=== PATIENT | male | born 1990 | race American Indian/Alaskan Native ===

== ENCOUNTER 2021-11-16 01:54 | Emergency (ER) | payer OTHER, SELFPAY ==
--- NOTE | ~2021-11-16 | CT_ITS ---
EXAMINATION: CT abdomen pelvis w con EXAM DATE: 11/16/2021 06:25 INDICATION: Left lower quadrant pain and intractable hiccups . TECHNIQUE: Spiral CT of the abdomen and pelvis was performed no prior Axial, coronal and sagittal im ages of the abdomen and pelvis were reviewed. The dose-length product (DLP) for this examination was 265.44 mGy-cm. The exposure was tailored according to patient size (auto mA exposure control), and iterative reconstruction (ASIR) was used as additional dose reduction technique. There is no prior s tudy for comparison. FINDINGS: The liver, spleen, adrenal glands and pancreas are unremarkable. Gallbladder is unremarkab le. No biliary obstruction. Portal and splenic veins are patent. Kidneys enhance symmetrically. T here is no hydronephrosis. The prostate is unremarkable. The bladder is unremarkable. There is no retroperitoneal or pelvic lymphadenopathy. The appendix is normal. Probable mild distal esophageal edema could indicate esophagitis. The stomach and small bowel are unremarkable. There is expected amount of colonic stool. No free intraperiton eal gas. The heart is normal in size. There are no pericardial or pleural effusions. The lung bas es are unremarkable. There are no osteoblastic or osteolytic lesions identified. IMPRESSION: 1. Distal esophageal edema could indicate esophagitis. 2. No acute intra-abdominal findings. Reviewed, dictated and finalized at location A. STRIAL SALES MANAGER
[2021-11-16 01:58] VITALS: BP 144/100; PULSE 121; RESP 20; TEMP 37; O2SAT 97
[2021-11-16 05:14] VITALS: BP 122/84; PULSE 105; RESP 20; TEMP 36.6; O2SAT 97
[2021-11-16] MEDS: SODIUM CHLORIDE 0.9% IV 1,000 ML 999 ML IV CONT (05:51)
[2021-11-16 06:00] LABS: Basophils Absolute Auto 0.1 K/mm3 (0.0-0.1); Basophils Percent Auto 0.6 % (0.2-1.2); Eosinophils Percent Auto 0.3 % (0-4.4); Hematocrit 51.9 % (42.0-52.0); Immature Granulocyte Absolute 0.03 K/mm3 (0.00-0.031); Immature Granulocyte Percent A 0.3 % (0-0.5); Lymphocytes Absolute Auto 1.88 K/mm3 (0.9-3.2); Lymphocytes Percent Auto 16.4 % (18.3-44.2); Mean Corpuscular HGB Conc 34.7 g/dl (32-36); Mean Corpuscular Hemoglobin 30.4 pg (26-34); Mean Corpuscular Volume 87.7 fl (80-100); Mean Platelet Volume 9.5 fl (7.4-10.4); Monocytes Absolute Auto 0.7 K/mm3 (0.1-0.6); Monocytes Percent Auto 5.9 % (2.6-8.5); Neutrophils Absolute Auto 8.8 K/mm3 (1.3-6.7); Neutrophils Percent Auto 76.5 % (45.5-73.1); Platelet Count Result 263 k/mm3 (150-375); Red Blood Count 5.92 M/mm3 (4.6-6.20); Red Cell Distribution Width 13.2 % (11.5-14.5); White Blood Count 11.5 K/mm3 (4.5-10.0)
[2021-11-16 06:07] LABS: Lactic Acid Reflex 2.3 mmol/L (0.7-2.1)
[2021-11-16 06:08] LABS: Alanine Aminotransferase 47 U/L (4-50); Albumin Level 4.9 g/dL (3.5-5.1); Alkaline Phosphatase 87 U/L (38-126); Anion Gap 16 mmol/L (8-16); Aspartate Amino Transferase 39 U/L (17-59); Bilirubin,Total 0.8 mg/dL (0.2-1.3); Blood Urea Nitrogen 8 mg/dL (9-20); Calcium 9.6 mg/dL (8.4-10.2); Carbon Dioxide 23 mmol/L (22-30); Chloride 101 mmol/L (98-107); Estimated CRCL calculation 122 ml/min; Estimated Glomerular Filt Rate > 60; Glucose 104 mg/dL (65-110); Lipase 82 U/L (23-300); Potassium 3.3 mmol/L (3.4-5.0); Sodium 140 mmol/L (137-145)
--- NOTE | 2021-11-16 06:13 | ED.GENADULT ---
HPI - General Adult General Chief complaint: Nausea/Vomiting/Diarrhea Stated complaint: hiccups, n/v, abd pain Time Seen by Provider: 11/16/21 05:20 History of Present Illness HPI narrative: 31-year-old male presenting to the emergency department for evaluation of left lower quadrant pain and intractable hiccups. Patient states he has developed left lower quadrant pain with associated nausea vomiting over the last few days. Patient states over the last 24 hours he has had intractable hiccups. Patient denies any previous abdominal surgeries. Denies any new medications. Patient states in [place] he did take Soma but states he is not taking that medication here. During the exam patient was has intermittent hiccups. 1 every 20-40 seconds. Related Data Allergies Allergy/AdvReac Type Severity Reaction Status Date / Time No Known Allergies Allergy Verified 11/16/21 05:16 Review of Systems Review of Systems: CONSTITUTIONAL: Denies fever, chills, or sweats. EYES: Denies visual changes, redness, or discharge. ENT: Denies rhinorrhea, congestion, sore throat, or otalgia. CARDIOVASCULAR: Denies chest pain, palpitations, or edema. RESPIRATORY: Intractable hiccups for the last 24 hours GASTROINTESTINAL: Left lower quadrant pain with associated nausea vomiting GENITOURINARY: Denies dysuria or hematuria. SKIN: Denies rash or itching. MUSCULOSKELETAL: Denies back pain, joint pain, or myalgia. NEUROLOGIC: Denies headache, numbness, or weakness. PSYCHIATRIC: Denies anxiety or depression. Exam Narrative: APPEARANCE: Well appearing, no pain in distress, well-nourished. HEAD: normocephalic, atraumatic. EYES: PERRLA/EOMI, conjunctivae clear. NECK: Supple. No adenopathy, no masses. RESPIRATORY: Airway patent, respirations nonlabored. Clear to auscultation bilaterally, no rales, rhonchi, wheezing. CARDIOVASCULAR: Regular rate and rhythm without murmurs rubs or gallops. ABDOMINAL: Normal bowel sounds, left lower quadrant tenderness to palpation MUSCULOSKELETAL: Moves all extremities. Strength/ROM intact, No edema, No calf tenderness. NEURO: Alert. Cranial nerves II through XII intact. Good gait. Good coordination SKIN: Warm, dry. Normal Color PSYCHIATRIC: Normal affect/mood. Course Course Emergency Course: CT scan was ordered to determine the etiology of LLQ pain and to exal for abdominal or lower lung finding that could be the cause of his hiccups. On re exam patient was resting comfortably and had no hiccups for the 5 min i spent updating him on the results and plan for follow up. patient was was appearing and in no distress at time of disposition home. Vital Signs Vital signs: Vital Signs Temperature 98.6 F 11/16/21 01:58 Pulse Rate 121 H 11/16/21 01:58 Respiratory Rate 20 11/16/21 01:58 Blood Pressure 144/100 H 11/16/21 01:58 Pulse Oximetry 97 11/16/21 01:58 Temperature 97.9 F 11/16/21 05:14 Pulse Rate 105 H 11/16/21 05:14 Respiratory Rate 20 11/16/21 05:14 Blood Pressure 122/84 11/16/21 05:14 Pulse Oximetry 97 11/16/21 05:14 Medical Decision Making Vital Signs Vital Signs: Vital Signs Temperature 98.6 F 11/16/21 01:58 Pulse Rate 121 H 11/16/21 01:58 Respiratory Rate 20 11/16/21 01:58 Blood Pressure 144/100 H 11/16/21 01:58 Pulse Oximetry 97 11/16/21 01:58 Temperature 97.9 F 11/16/21 05:14 Pulse Rate 105 H 11/16/21 05:14 Respiratory Rate 20 11/16/21 05:14 Blood Pressure 122/84 11/16/21 05:14 Pulse Oximetry 97 11/16/21 05:14 Lab Data Lab results reviewed: Yes I reviewed the patient's lab results. Result diagrams: 11/16/21 05:43 11/16/21 05:43 Labs: Lab Results 11/16/21 11/16/21 11/16/21 Range/Units 05:43 05:43 05:43 WBC 11.5 H (4.5-10.0) K/mm3 RBC 5.92 (4.6-6.20) M/mm3 Hgb 18.0 (14.0-18.0) g/dL Hct 51.9 (42.0-52.0) % MCV 87.7 (80-100) fl MCH 30.4 (26-34) pg MCHC 34.7 (32-36) g/dl RDW 1
--- NOTE | 2021-11-16 06:15 | PC.NURSE ---
Patient taken to CT.
--- NOTE | 2021-11-16 07:11 | PC.NURSE ---
Report given to STEVE Garcia.
[2021-11-16 08:55] LABS: Reflex Lactic Acid Yes or No Add Lactic
== END 2021-11-16 08:00 | disposition home or self-care (01) ==
PROVIDERS: Emergency Provider Emergency Medicine
DX: R10.32 Left lower quadrant pain (principal); R06.6 Hiccough
CPT/HCPCS: 36415; 74177; 80053; 83605; 83690; 85025; 96360; 99284; J7030; Q9967

== ENCOUNTER 2021-11-29 00:23 | Emergency (ER) | payer SELFPAY ==
[2021-11-29] VITALS (18 sets, daily range): BP systolic 112–144; BP diastolic 56–101; PULSE 98–135; RESP 14–25; TEMP 37.3; O2SAT 97
--- NOTE | ~2021-11-29 | CT_ITS ---
EXAMINATION: CT abdomen pelvis w con DATE: 11/29/2021 01:41 INDICATION: Abdominal pain and vomiting TECHNIQUE: Computed tomography (CT) of the abdomen and pelvis was performed with 100 cc Omnipaque 350 intravenous contrast. The dose-length product was 243.48 mGy-cm. Automated exposure control and iter ative reconstruction technique were employed. COMPARISON: CT dated 11/16/2021. FINDINGS: Lung bases are unremarkable. Heart size normal. There is diffuse thickening of the distal e sophagus. No significant pleural or pericardial effusion. No significant vascular abnormality. No lym phadenopathy. Nonobstructive bowel gas pattern. No free air or free fluid. Normal appendix. Fatty inf iltration of the liver. The spleen, pancreas, adrenal glands and kidneys are unremarkable. Small hiat al hernia. IMPRESSION: 1. Small hiatal hernia with thickening of the distal esophagus, suspicious for esophagitis. Reviewed, dictated and finalized at location A. MESSENGER
[2021-11-29] MEDS: diphenhydrAMINE HCl INJ 50 MG/ML VIAL IV PUSH (01:18)
[2021-11-29] MEDS: PROCHLORPERAZINE EDISYLATE 10 MG/2 ML VIAL IV PUSH (01:18)
[2021-11-29 01:20] LABS: Alanine Aminotransferase 77 U/L (4-50); Albumin Level 5.3 g/dL (3.5-5.1); Alkaline Phosphatase 102 U/L (38-126); Anion Gap 19 mmol/L (8-16); Aspartate Amino Transferase 51 U/L (17-59); Bilirubin,Total 1.5 mg/dL (0.2-1.3); Blood Urea Nitrogen 9 mg/dL (9-20); Calcium 9.2 mg/dL (8.4-10.2); Carbon Dioxide 25 mmol/L (22-30); Chloride 94 mmol/L (98-107); Estimated CRCL calculation 114 ml/min; Estimated Glomerular Filt Rate > 60; Glucose 173 mg/dL (65-110); Lipase 91 U/L (23-300); Potassium 3.5 mmol/L (3.4-5.0); Sodium 138 mmol/L (137-145)
[2021-11-29] MEDS: SODIUM CHLORIDE 0.9% IV 100 ML 500 ML (01:21)
[2021-11-29 01:26] LABS: Basophils Absolute Auto 0.1 K/mm3 (0.0-0.1); Basophils Percent Auto 0.8 % (0.2-1.2); Eosinophils Percent Auto 0.2 % (0-4.4); Hematocrit 49.6 % (42.0-52.0); Hemoglobin 17.4 g/dL (14.0-18.0); Immature Granulocyte Absolute 0.03 K/mm3 (0.00-0.031); Immature Granulocyte Percent A 0.3 % (0-0.5); Lymphocytes Absolute Auto 1.16 K/mm3 (0.9-3.2); Lymphocytes Percent Auto 12.3 % (18.3-44.2); Mean Corpuscular HGB Conc 35.1 g/dl (32-36); Mean Corpuscular Hemoglobin 30.4 pg (26-34); Mean Corpuscular Volume 86.7 fl (80-100); Mean Platelet Volume 9.4 fl (7.4-10.4); Monocytes Absolute Auto 0.7 K/mm3 (0.1-0.6); Monocytes Percent Auto 6.9 % (2.6-8.5); Neutrophils Absolute Auto 7.5 K/mm3 (1.3-6.7); Neutrophils Percent Auto 79.5 % (45.5-73.1); Platelet Count Result 325 k/mm3 (150-375); Red Blood Count 5.72 M/mm3 (4.6-6.20); Red Cell Distribution Width 13.3 % (11.5-14.5); White Blood Count 9.4 K/mm3 (4.5-10.0)
--- NOTE | 2021-11-29 01:56 | ED.GENADULT ---
HPI - General Adult General Chief complaint: Abdominal Pain Stated complaint: vomiting Time Seen by Provider: 11/29/21 00:51 History of Present Illness HPI narrative: Patient 4-year-old gentleman who presents the emergency department with chief complaint of epigastric discomfort. Patient reports that he started having hiccups and has had pain in the epigastrium. Patient reports nausea with this reports uncomfortable feeling. Patient states symptoms or not improved by anything patient also reports that he started vomiting this evening and had some blood in it as well. Patient states it was bright red blood not coffee-ground material patient reports no prior history of GI bleeds. Related Data Allergies Allergy/AdvReac Type Severity Reaction Status Date / Time No Known Allergies Allergy Verified 11/16/21 05:16 Review of Systems Review of Systems: A 10 system review of systems was completed on the patient and is negative except for what is stated in the HPI. Nursing and ancillary documentation was reviewed. Exam Narrative: GENERAL: Well-appearing, well-nourished, and in no acute distress. HEAD: Normocephalic, atraumatic. EYES: PERRLA and EOMI. ENT: Nares clear, no rhinorrhea or epistaxis. Mucous membranes moist. NECK: Supple. CHEST: Clear to auscultation. No respiratory distress. HEART: Regular rate and rhythm. No murmur heard. Normal peripheral pulses. ABDOMEN: Soft, nontender, nondistended, normal active bowel sounds. EXTREMITIES: Normal range of motion. No edema. SKIN: Warm, dry, no rash. NEURO: No focal deficits. Alert and oriented x3. PSYCH: Normal mood and affect. Course Vital Signs Vital signs: Vital Signs Temperature 37.3 C 11/29/21 00:25 Pulse Rate 135 H 11/29/21 00:25 Respiratory Rate 16 11/29/21 00:25 Blood Pressure 143/92 H 11/29/21 00:25 Pulse Oximetry 97 11/29/21 00:25 Temperature 37.3 C 11/29/21 00:25 Pulse Rate 115 H 11/29/21 03:01 Respiratory Rate 17 11/29/21 03:01 Blood Pressure 123/101 H 11/29/21 03:01 Pulse Oximetry 97 11/29/21 00:25 Medical Decision Making Vital Signs Vital Signs: Vital Signs Temperature 37.3 C 11/29/21 00:25 Pulse Rate 135 H 11/29/21 00:25 Respiratory Rate 16 11/29/21 00:25 Blood Pressure 143/92 H 11/29/21 00:25 Pulse Oximetry 97 11/29/21 00:25 Temperature 37.3 C 11/29/21 00:25 Pulse Rate 115 H 11/29/21 03:01 Respiratory Rate 17 11/29/21 03:01 Blood Pressure 123/101 H 11/29/21 03:01 Pulse Oximetry 97 11/29/21 00:25 Lab Data Result diagrams: 11/29/21 00:56 11/29/21 00:56 Labs: Lab Results 11/29/21 11/29/21 11/29/21 Range/Units 00:56 00:56 01:16 WBC 9.4 (4.5-10.0) K/mm3 RBC 5.72 (4.6-6.20) M/mm3 Hgb 17.4 (14.0-18.0) g/dL Hct 49.6 (42.0-52.0) % MCV 86.7 (80-100) fl MCH 30.4 (26-34) pg MCHC 35.1 (32-36) g/dl RDW 13.3 (11.5-14.5) % Plt Count 325 (150-375) k/mm3 MPV 9.4 (7.4-10.4) fl Immature Gran % (Auto) 0.3 (0-0.5) % Neut % (Auto) 79.5 H (45.5-73.1) % Lymph % (Auto) 12.3 L (18.3-44.2) % Grand % (Auto) 6.9 (2.6-8.5) % Eos % (Auto) 0.2 (0-4.4) % Baso % (Auto) 0.8 (0.2-1.2) % Lymph # (Auto) 1.16 (0.9-3.2) K/mm3 Grand # (Auto) 0.7 H (0.1-0.6) K/mm3 Eos # (Auto) 0.0 (0-0.3) K/mm3 Baso # (Auto) 0.1 (0.0-0.1) K/mm3 Abs Immat Gran (auto) 0.03 (0.00-0.031) K/mm3 Absolute Neuts (auto) 7.5 H (1.3-6.7) K/mm3 Absolute Nucleated RBC 0.0 (0.0-0.012) K/mm3 Nucleated RBC % 0.0 (0.0-0.2) % PT (11.1-14.7) Seconds INR APTT (22.3-36.8) SECONDS Sodium 138 (137-145) mmol/L Potassium 3.5 (3.4-5.0) mmol/L Chloride 94 L (98-107) mmol/L Carbon Dioxide 25 (22-30) mmol/L Anion Gap 19 H (8-16) mmol/L BUN 9 (9-20) mg/dL Creatinine 0.80 (0.7-1.3) mg/dL Estim Creat Clear Calc 114 ml/min Estimated GFR > 60 (59 -
[2021-11-29 01:57] LABS: Add Urine Microscopic? YES; Appearance Urine Clear (Clear); Bilirubin Urine Negative (Negative); Blood Urine Negative (Negative); Color Urine Straw (Yellow); Glucose Urine UA 3+ mg/dL (Negative); Ketones Urine Trace mg/dL (Negative); Leukocyte Esterase Ur Negative LEU/UL (Negative); Nitrate Urine Negative (Negative); Protein Urine Negative (Negative); RBC Urine 0-2 /hpf (0-2); Specific Grav Ur 1.005 (1.001-1.035); Urobilinogen Urine Negative mg/dL (<2.0); WBC Urine 0-3 /hpf
[2021-11-29 02:10] LABS: INR 0.9; Prothrombin Time 11.8 Seconds (11.1-14.7)
[2021-11-29 02:47] LABS: Lactic Acid Reflex 4.5 mmol/L (0.7-2.1)
[2021-11-29] MEDS: SODIUM CHLORIDE 0.9% IV 1,000 ML 999 ML IV CONT ×2 (03:26→04:32)
[2021-11-29 04:51] LABS: Reflex Lactic Acid Yes or No Add Lactic
[2021-11-29 05:27] LABS: Lactic Acid 2.2 mmol/L (0.7-2.1)
== END 2021-11-29 07:30 | disposition home or self-care (01) ==
PROVIDERS: Emergency Provider Emergency Medicine
DX: K29.00 Acute gastritis without bleeding (principal); R06.6 Hiccough
CPT/HCPCS: 36415; 74177; 80053; 81001; 83605; 83690; 85025; 85610; 85730; 86850; 86900; 86901; 96361; 96374; 96375; 99284; J0780; J1200; J7030; Q9967

== ENCOUNTER 2021-12-15 01:50 | Emergency (ER) | payer SELFPAY ==
[2021-12-15] VITALS (21 sets, daily range): BP systolic 109–148; BP diastolic 70–108; PULSE 73–104; RESP 11–18; O2SAT 95–99
--- NOTE | 2021-12-15 02:12 | ED.NAVMDI ---
HPI - Nausea/Vomiting/Diarrhea General Chief complaint: Nausea/Vomiting/Diarrhea Stated complaint: throwing up blood - etoh and drinking red drinks Time Seen by Provider: 12/15/21 01:54 Source: patient History of Present Illness HPI Narrative: Patient presents with concerns for vomiting blood. Patient ports he was drinking alcohol today and they were red-colored. He also reports a longstanding history of vomiting blood he was said to be evaluated by GI in [place] years ago but has not done so and has no plans to continue his evaluation with GI. Reports overall he feels well he is just throwing up blood. Denies any diarrhea or urinary symptoms denies any trauma denies any lightheadedness dizziness or palpitations. Related Data Allergies Allergy/AdvReac Type Severity Reaction Status Date / Time No Known Allergies Allergy Verified 12/15/21 03:06 Review of Systems Review of Systems: CONSTITUTIONAL: Denies fever, chills, or sweats. EYES: Denies visual changes, redness, or discharge. ENT: Denies rhinorrhea, congestion, sore throat, or otalgia. CARDIOVASCULAR: Denies chest pain, palpitations, or edema. RESPIRATORY: Denies cough or dyspnea. GASTROINTESTINAL: Denies abdominal pain, or diarrhea. GENITOURINARY: Denies dysuria or hematuria. SKIN: Denies rash or itching. MUSCULOSKELETAL: Denies back pain, joint pain, or myalgia. NEUROLOGIC: Denies headache, numbness, dizziness, or weakness. PSYCHIATRIC: Denies anxiety or depression. All systems reviewed & are unremarkable except as noted in HPI and below PMFSH Past Medical History Medical History (Updated 12/15/21 @ 06:30 by Matty Magdaleno MD) Hypertension Social History Social History (Updated 12/15/21 @ 02:14 by Matty Magdaleno MD) Alcohol intake: current Exam Narrative: GENERAL: Well-appearing, well-nourished, and in no acute distress. HEAD: Normocephalic, atraumatic. EYES: PERRLA and EOMI. ENT: Nares clear, no rhinorrhea or epistaxis. Mucous membranes moist. NECK: Supple. No masses. No JVD ABDOMEN: Mild tenderness palpation of the left abdomen no rebound or guarding soft, nondistended, normal active bowel sounds. EXTREMITIES: Normal range of motion. No edema. SKIN: Warm, dry, no rash. NEURO: No focal deficits. Alert and oriented x3. PSYCH: Normal mood and affect. Course Reevaluation(s) Reevaluation #1: Patient reports feeling much improved and feels he can manage his sympotms at home. Date: 12/15/21 Time: 06:26 Vital Signs Vital signs: Vital Signs Pulse Rate 104 H 12/15/21 01:50 Respiratory Rate 18 12/15/21 01:50 Blood Pressure 148/108 H 12/15/21 01:50 Pulse Oximetry 97 12/15/21 01:50 Pulse Rate 88 12/15/21 06:45 Respiratory Rate 18 12/15/21 06:45 Blood Pressure 138/97 H 12/15/21 06:45 Pulse Oximetry 99 12/15/21 06:45 MDM - Nausea/Vomiting/Diarrhea MDM Narrative Medical decision making narrative: Patient presented with concern for bloody emesis. patient has a hx of the same suspected to be gastritis pt also reported having red beverages this evening. Pt overall looks clinically well, VS reassuring, exam with non acute abdoment. labs obtained and clinically unremarkable witht he exception of the EtoH. Suspected alcohol intoxication with alcoholic gastrics, low concern for signifciatn hemorrhage, perforation. With a reassuring exam and negative work up pt is appropriate for coutnined outpatient management, he was encourged to see PCM and GI for continued evaluation of his symtpoms. Taxi was called for the patient. Lab Data Result diagrams: 12/15/21 02:16 12/15/21 02:56 Labs: Lab Results 12/15/21 12/15/21 12/15/21 Range/Units 02:16 02:16 02:56 WBC 6.5 (4.5-10.0) K/mm3 RBC 5.48 (4.6-6.20) M/mm3 Hgb 16.7 (14.0-18.0) g/dL Hct 48.8 (42.0-52.0) % MCV 89.1 (80-100) fl MCH 30.5 (26-34) pg MCHC 34.2 (32-36) g/dl RDW 13.8 (11.5-14.5) % Plt Count 339 (1
[2021-12-15 02:28] LABS: Add Urine Microscopic? NO; Appearance Urine Clear (Clear); Bilirubin Urine Negative (Negative); Blood Urine Negative (Negative); Color Urine Straw (Yellow); Glucose Urine UA Negative (Negative); Ketones Urine Negative (Negative); Leukocyte Esterase Ur Negative LEU/UL (Negative); Nitrate Urine Negative (Negative); Protein Urine Negative (Negative); Urobilinogen Urine Negative mg/dL (<2.0)
[2021-12-15] MEDS: SODIUM CHLORIDE 0.9% IV 1,000 ML 999 ML IV CONT (02:31)
[2021-12-15] MEDS: ONDANSETRON INJ 4 MG/2 ML VIAL IV PUSH (02:31)
[2021-12-15 02:46] LABS: Basophils Absolute Auto 0.1 K/mm3 (0.0-0.1); Basophils Percent Auto 0.9 % (0.2-1.2); Eosinophils Percent Auto 0.3 % (0-4.4); Hematocrit 48.8 % (42.0-52.0); Hemoglobin 16.7 g/dL (14.0-18.0); Immature Granulocyte Absolute 0.02 K/mm3 (0.00-0.031); Immature Granulocyte Percent A 0.3 % (0-0.5); Lymphocytes Absolute Auto 1.69 K/mm3 (0.9-3.2); Lymphocytes Percent Auto 26.2 % (18.3-44.2); Mean Corpuscular HGB Conc 34.2 g/dl (32-36); Mean Corpuscular Hemoglobin 30.5 pg (26-34); Mean Corpuscular Volume 89.1 fl (80-100); Monocytes Absolute Auto 0.5 K/mm3 (0.1-0.6); Neutrophils Absolute Auto 4.2 K/mm3 (1.3-6.7); Neutrophils Percent Auto 65.3 % (45.5-73.1); Platelet Count Result 339 k/mm3 (150-375); Red Blood Count 5.48 M/mm3 (4.6-6.20); Red Cell Distribution Width 13.8 % (11.5-14.5); White Blood Count 6.5 K/mm3 (4.5-10.0)
[2021-12-15 02:51] LABS: Specific Grav Ur 1.003 (1.001-1.035)
[2021-12-15 03:53] LABS: Alanine Aminotransferase 108 U/L (4-50); Albumin Level 4.6 g/dL (3.5-5.1); Alkaline Phosphatase 95 U/L (38-126); Anion Gap 14 mmol/L (8-16); Aspartate Amino Transferase 73 U/L (17-59); Bilirubin,Total 0.6 mg/dL (0.2-1.3); Blood Urea Nitrogen 5 mg/dL (9-20); Calcium 8.6 mg/dL (8.4-10.2); Carbon Dioxide 26 mmol/L (22-30); Chloride 103 mmol/L (98-107); Estimated CRCL calculation 114 ml/min; Estimated Glomerular Filt Rate > 60; Glucose 111 mg/dL (65-110); Lipase 92 U/L (23-300); Sodium 143 mmol/L (137-145)
[2021-12-15 04:04] LABS: Ethanol 371 mg/dL (<10)
== END 2021-12-15 06:38 | disposition home or self-care (01) ==
PROVIDERS: Emergency Provider Emergency Medicine
DX: F10.120 Alcohol abuse with intoxication, uncomplicated (principal); I10 Essential (primary) hypertension; Y90.8 Blood alcohol level of 240 mg/100 ml or more
CPT/HCPCS: 36415; 80053; 80307; 81003; 83690; 85025; 96361; 96374; 99284; J2060; J2405; J7030

== ENCOUNTER 2021-12-16 21:00 | Emergency (ER) | payer OTHER, SELFPAY ==
--- NOTE | ~2021-12-16 | XR_ITS ---
EXAMINATION: XR chest 2V EXAM DATE: 12/16/2021 21:20 INDICATION: Sternal Chest Pressure,Dizzy,Weak,Since 5pm Today. TECHNIQUE: Frontal and lateral projections of the chest obtained and reviewed. There is no prior liana dy for comparison. FINDINGS: The lungs are clear. There are no pleural effusions. The cardiomediastinal silhouette is within normal limits. There is no pneumothorax suspected. The bones and soft tissues are unremarkab le. IMPRESSION: No acute cardiopulmonary findings. Reviewed, dictated and finalized at location G. MA CENTER TECHNICIAN
--- NOTE | 2021-12-16 21:09 | ECG_ITS ---
Measurements Intervals [place] Rate: 112 P: 146 NC: 121 QRS: 143 QRSD: 93 T: -19 QT: 289 QTc: 395 Interpretive Statements SINUS OR ECTOPIC ATRIAL TACHYCARDIA ARM LEADS REVERSED DELAYED PRECORDIAL R/S TRANSITION MINIMAL Q WAVES- INF/LAT LEADS BORDERLINE ST-T WAVE ABNORMALITY- INFERIOR LEADS BASELINE WANDER- I, II ABNORMAL ECG Electronically Signed On 12-17-2021 6:31:30 DIRECT MAIL CLERK by Jose Alberto Landers D.O.
[2021-12-16 21:18] VITALS: BP 160/100; PULSE 120; RESP 18; TEMP 37.7; O2SAT 99
[2021-12-16 21:26] LABS: Basophils Absolute Auto 0.1 K/mm3 (0.0-0.1); Basophils Percent Auto 0.7 % (0.2-1.2); Hematocrit 46.6 % (42.0-52.0); Hemoglobin 15.9 g/dL (14.0-18.0); Immature Granulocyte Absolute 0.02 K/mm3 (0.00-0.031); Immature Granulocyte Percent A 0.2 % (0-0.5); Lymphocytes Absolute Auto 0.75 K/mm3 (0.9-3.2); Lymphocytes Percent Auto 6.4 % (18.3-44.2); Mean Corpuscular HGB Conc 34.1 g/dl (32-36); Mean Corpuscular Hemoglobin 30.6 pg (26-34); Mean Corpuscular Volume 89.8 fl (80-100); Mean Platelet Volume 9.1 fl (7.4-10.4); Monocytes Absolute Auto 0.7 K/mm3 (0.1-0.6); Monocytes Percent Auto 5.8 % (2.6-8.5); Neutrophils Absolute Auto 10.3 K/mm3 (1.3-6.7); Neutrophils Percent Auto 86.9 % (45.5-73.1); Platelet Count Result 296 k/mm3 (150-375); Red Blood Count 5.19 M/mm3 (4.6-6.20); Red Cell Distribution Width 13.7 % (11.5-14.5); White Blood Count 11.8 K/mm3 (4.5-10.0)
[2021-12-16] MEDS: ASPIRIN 81 MG CHEWABLE TABLET 324 MG PO (21:28)
[2021-12-16 21:36] LABS: INR 0.9; Prothrombin Time 12.5 Seconds (11.1-14.7)
[2021-12-16 21:37] LABS: Alanine Aminotransferase 81 U/L (4-50); Albumin Level 4.8 g/dL (3.5-5.1); Alkaline Phosphatase 115 U/L (38-126); Anion Gap 8 mmol/L (8-16); Aspartate Amino Transferase 54 U/L (17-59); Bilirubin,Total 1.8 mg/dL (0.2-1.3); Blood Urea Nitrogen 8 mg/dL (9-20); Calcium 9.7 mg/dL (8.4-10.2); Carbon Dioxide 28 mmol/L (22-30); Chloride 95 mmol/L (98-107); Estimated CRCL calculation 118 ml/min; Estimated Glomerular Filt Rate > 60; Glucose 124 mg/dL (65-110); Lipase 61 U/L (23-300); Partial Thromboplastin Time 27.7 SECONDS (22.3-36.8); Potassium 3.2 mmol/L (3.4-5.0); Sodium 131 mmol/L (137-145)
[2021-12-16 21:48] LABS: Troponin I < 0.012 ng/mL (0.000-0.034)
--- NOTE | 2021-12-16 22:28 | ED.CHESTPAIN ---
HPI - Chest Pain General Chief Complaint: Chest Pain Stated Complaint: chest tightness; dyspnea Time Seen by Provider: 12/16/21 21:29 Source: patient Mode of arrival: ambulatory Limitations: no limitations History of Present Illness HPI narrative: Patient is a 31-year-old male complaining of chest pain, burning, substernal, radiating to his upper chest, 6 out of 10, started earlier tonight. Patient states that he has history of stomach problems and takes medications for it. Denies any shortness of breath, abdominal pain, nausea, vomiting, fever or chills. Patient also states that he has a history of anxiety but does not take any medication for. Patient denies any suicidal or homicidal thoughts. Patient was recently seen here few days ago for alcohol intoxication. Related Data Allergies Allergy/AdvReac Type Severity Reaction Status Date / Time No Known Allergies Allergy Verified 12/15/21 03:06 Review of Systems Review of Systems: All systems reviewed & are unremarkable except as noted in HPI and below Constitutional: Constitutional: Denies body ache(s), Denies chills, Denies excessive sweating, Denies fatigue, Denies fever(s), Denies headache(s), Denies lethargy, Denies malaise, Denies weakness and Denies weight loss Eyes: Eyes: Denies blurry vision, Denies change in vision and Denies loss of vision ENT: Denies dizziness, Denies ear discharge, Denies headache(s), Denies lip swelling, Denies epistaxis, Denies nasal congestion, Denies neck pain, Denies throat swelling and Denies tongue swelling Cardiovascular: Cardiovascular: Denies diaphoresis, Denies rapid heart rate, Denies edema, Denies irregular heart rhythm, Denies lightheadedness, Denies palpitations, Denies dyspnea and Denies dyspnea on exertion Respiratory: Respiratory: Denies chest congestion, Denies cough, Denies hemoptysis, Denies dyspnea and Denies dyspnea on exertion Gastrointestinal: Gastrointestinal: Denies abdominal pain, Denies melena, Denies hematochezia, Denies diarrhea, Denies nausea, Denies vomiting and Denies hematemesis Musculoskeletal: Musculoskeletal: Denies abnormal gait, Denies deformity, Denies joint swelling, Denies limited range of motion, Denies neck pain and Denies numbness Neurologic: Denies Abnormal speech present, Denies abnormal gait, Denies confusion, Denies dizziness, Denies headache(s), Denies focal weakness, Denies loss of vision, Denies numbness, Denies Other visual disturbances, Denies Sensory deficit (Neuro) and Denies weakness Psychiatric: Psychiatric: Denies confusion, Denies depression, Denies auditory hallucinations, Denies homicidal ideation and Denies suicidal ideation Endocrine: Endocrine: Denies cold intolerance, Denies excessive sweating, Denies fatigue, Denies heat intolerance and Denies palpitations Hematologic/Lymphatic: Hematologic/Lymphatic: Denies easy bleeding and Denies easy bruising Allergic/Immunologic: Allergic/Immunologic: Denies lip swelling, Denies throat swelling and Denies tongue swelling PMFSH Past Medical History Medical History (Updated 12/16/21 @ 23:16 by David Sheikh MD) Hypertension Social History Social History (Updated 12/15/21 @ 02:14 by Matty Magdaleno MD) Alcohol intake: current Comments Past medical history: Gastritis, GERD Family history: Negative for coronary disease or [place] Social history: Positive for smoker, occasional EtOH use, no drug use Exam Const: General: cooperative, healthy appearing, comfortable, no acute distress, well developed, alert and awake; No confusion Orientation/consciousness: oriented to person, oriented to place, oriented to time, patient oriented x3 and No confusion Limitations: no limitations HENMT: Head: normal to inspection, normocephalic and atraumatic Ears: hearing grossly normal bilaterally, TM normal on the right and TM normal on the left General nose exam: Normal external nose present, Normal nares present and No nasal discharge present Fa
[2021-12-16 22:40] VITALS: BP 146/106; PULSE 105; RESP 18; O2SAT 100
[2021-12-16] MEDS: ACETAMINOPHEN 325 MG TABLET 650 MG PO (23:30)
[2021-12-16] MEDS: FAMOTIDINE 20 MG TABLET 40 MG PO (23:35)
[2021-12-16] MEDS: BELLADONNA ALK/PHENOB ELIX 10 ML, MAG HYDROX/ALUMINUM HYD/SIMETH 30 ML, LIDOCAINE HCL 2... PO (23:35)
[2021-12-16] MEDS: POTASSIUM CHLORIDE 20 MEQ PACKET (FOR LIQUID) 40 MEQ PO (23:36)
[2021-12-16 23:40] VITALS: BP 146/100; PULSE 115; RESP 18; O2SAT 99
== END 2021-12-17 00:09 | disposition home or self-care (01) ==
PROVIDERS: Emergency Medicine; Emergency Provider Emergency Medicine
DX: K29.70 Gastritis, unspecified, without bleeding (principal); R07.9 Chest pain, unspecified; I10 Essential (primary) hypertension
CPT/HCPCS: 36415; 71046; 80053; 83690; 84484; 85025; 85380; 85610; 85730; 93005; 99284; A9270